=== PATIENT | male | born 1960 | race Caucasian/White ===

== ENCOUNTER 2022-08-16 00:17 | Day surgery (SDC) | payer OTHER, SELFPAY ==
[2022-08-06 09:04] VITALS: BMI 42.8
[2022-08-16 07:57] LABS: Glucose Point of Care 188 mg/dl (65-105)
[2022-08-16 08:01] VITALS: BP 141/76; PULSE 58; RESP 18; TEMP 35.8; O2SAT 99
[2022-08-16] MEDS: LACTATED RINGERS 1,000 ML 150 ML IV CONT (08:10)
--- NOTE | 2022-08-16 08:38 | PM.HPGS ---
History of Present Illness History of Present Illness Consent: Risks, benefits, and alternatives have been discussed and questions answered. Patient agrees to proceed with procedure. Chief complaint: family hx colon ca Narrative: Jareth Armstrong is a 61 year old male Presents for screening colonoscopy. Family history is significant both mother and sister have had colon cancer. Patient reports that his current weight appetite bowel movements are normal. Patient denies abdominal pain. He has had no bleeding. Family history noncontributory. Patient is on anticoagulation because of atrial fibrillation this is held for colonoscopy. Review of Systems Review of Systems: Review of systems noncontributory. [facility] Past Medical History Medical History Essential (primary) hypertension Obesity Sleep apnea in adult Surgical History Surgical History S/P ablation of atrial fibrillation Family History Family History Mother Hypertension Father No family history of hypertension Patient's father is Sibling Carcinoma of colon Patient's sister is Social History Social History Years smoked: 10 Smoking status: Former smoker Smokeless tobacco user: other Second hand tobacco smoke exposure: No Additional smoking assessment comments: NICOTINE POUCHES Alcohol intake: current Substance use: never Substance use type: does not use Lack of Transportation: No Lack of Food: Never True Current Housing: I Have Housing Concerned About Future Housing: No Difficulty Paying Gas/Electric Bills: No Difficulty Paying for Meds: No Currently Unemployed: No Education: Trade/Vocational Certificate Difficulty w/ Childcare or Family Care: No Living arrangements: with family Spiritual care concerns: No Meds Home Medications and Allergies Home Medications Medication Instructions Recorded Confirmed Type lancets 28 gauge (Prodigy Lancets) #25 ea 09/20/19 08/05/22 History pen needle, diabetic 31 gauge x #300 ea 05/22/21 08/05/22 Rx 5/16 (BD Ultra-Fine Short Pen Needle) insulin lispro protamine-lispro See Rx Instructions .Route 10/24/21 08/06/22 Rx 100 unit/mL (75-25) subcutaneous .COMPLEX #72 mL pen (Humalog Mix 75-25 KwikPen) empagliflozin 25 mg tablet 25 mg PO DAILY 90 days #90 tabs 05/01/22 08/06/22 Rx (Jardiance) metformin 500 mg tablet 1,000 mg PO BID 3 months #360 tabs 05/17/22 08/06/22 Rx apixaban 5 mg tablet (Eliquis) 5 mg PO BID #60 tabs 06/18/22 08/06/22 Rx amiodarone 200 mg tablet 200 mg PO BID 08/05/22 08/16/22 History blood-glucose sensor (FreeStyle #6 ea 08/05/22 08/05/22 Rx Yves 3 Sensor device) tirzepatide 2.5 mg/0.5 mL 2.5 mg (0.5 mL) subcut WEEKLY 4 08/05/22 08/06/22 Rx subcutaneous pen injector weeks #2 mL (Mounjaro) tirzepatide 5 mg/0.5 mL 5 mg (0.5 mL) subcut WEEKLY #2 mL 08/05/22 08/06/22 Rx subcutaneous pen injector (Mounjaro) losartan 100 mg tablet 100 mg PO DAILY 08/06/22 08/06/22 History metoprolol succinate 25 mg 25 mg PO HS 08/06/22 08/06/22 History tablet,extended release 24 hr rosuvastatin 5 mg tablet 5 mg PO HS 08/06/22 08/06/22 History Allergies Allergy/AdvReac Type Severity Reaction Status Date / Time No Known Allergies Allergy Verified 08/16/22 07:59 Vital Signs Vital Signs - 24 hr 08/16/22 08:01 Temperature 96.5 F L Pulse Rate 58 L Respiratory Rate 18 Blood Pressure 141/76 H Pulse Oximetry 99 Oxygen Delivery Room Air Exam Narrative: Physical exam reveals patient to be alert. Vital signs stable. HEENT exam is unremarkable. Patient is anicteric. Lungs are clear to auscultation and percussion. Heart is without murmur or extra so
--- NOTE | 2022-08-16 09:08 | WPDANESEPPF ---
Anes - Initial Pre Proc Eval Procedure: Operation Date: 08/16/22 09:00 Proposed Procedures p Screening Colonoscopy - Chidi Lomax MD Date/Time: 08/16/22 09:08 Surgeon: Chidi Lomax MD Pre Op Diagnosis: family hx colon ca Patient Data Age: 61 Gender: M Height: 1.79 m Weight: 137 kg Last Vital Signs Temp 96.5 F L 08/16/22 08:01 Pulse 58 L 08/16/22 08:01 Resp 18 08/16/22 08:01 BP 141/76 H 08/16/22 08:01 Pulse Ox 99 08/16/22 08:01 O2 Del Method Room Air 08/16/22 08:01 Allergies Allergy/AdvReac Type Severity Reaction Status Date / Time No Known Allergies Allergy Verified 08/16/22 07:59 Home Medications Medication Instructions Recorded Confirmed Type lancets 28 gauge (Prodigy Lancets) #25 ea 09/20/19 08/05/22 History pen needle, diabetic 31 gauge x #300 ea 05/22/21 08/05/22 Rx 5/16 (BD Ultra-Fine Short Pen Needle) insulin lispro protamine-lispro See Rx Instructions .Route 10/24/21 08/06/22 Rx 100 unit/mL (75-25) subcutaneous .COMPLEX #72 mL pen (Humalog Mix 75-25 KwikPen) empagliflozin 25 mg tablet 25 mg PO DAILY 90 days #90 tabs 05/01/22 08/06/22 Rx (Jardiance) metformin 500 mg tablet 1,000 mg PO BID 3 months #360 tabs 05/17/22 08/06/22 Rx apixaban 5 mg tablet (Eliquis) 5 mg PO BID #60 tabs 06/18/22 08/06/22 Rx amiodarone 200 mg tablet 200 mg PO BID 08/05/22 08/16/22 History blood-glucose sensor (FreeStyle #6 ea 08/05/22 08/05/22 Rx Yves 3 Sensor device) tirzepatide 2.5 mg/0.5 mL 2.5 mg (0.5 mL) subcut WEEKLY 4 08/05/22 08/06/22 Rx subcutaneous pen injector weeks #2 mL (Anthony) tirzepatide 5 mg/0.5 mL 5 mg (0.5 mL) subcut WEEKLY #2 mL 08/05/22 08/06/22 Rx subcutaneous pen injector (Anthony) losartan 100 mg tablet 100 mg PO DAILY 08/06/22 08/06/22 History metoprolol succinate 25 mg 25 mg PO HS 08/06/22 08/06/22 History tablet,extended release 24 hr rosuvastatin 5 mg tablet 5 mg PO HS 08/06/22 08/06/22 History Laboratory Tests 08/16/22 07:54 POC Capillary Glucose 188 H mg/dl (65-105) Patient hx anesthesia problems: none Family hx anesthesia problems: none Results Review: All pre-operative results and documents have been reviewed as part of the pre-operative evaluation. [facility] Past Medical History Medical History Essential (primary) hypertension Obesity Sleep apnea in adult Surgical History Surgical History S/P ablation of atrial fibrillation Family History Family History Mother Hypertension Father No family history of hypertension Patient's father is Sibling Carcinoma of colon Patient's sister is Social History Social History Years smoked: 10 Smoking status: Former smoker Smokeless tobacco user: other Second hand tobacco smoke exposure: No Additional smoking assessment comments: NICOTINE POUCHES Alcohol intake: current Substance use: never Substance use type: does not use Lack of Transportation: No Lack of Food: Never True Current Housing: I Have Housing Concerned About Future Housing: No Difficulty Paying Gas/Electric Bills: No Difficulty Paying for Meds: No Currently Unemployed: No Education: Trade/Vocational Certificate Difficulty w/ Childcare or Family Care: No Living arrangements: with family Spiritual care concerns: No Anes - Eval Final PreProcedure Day of Procedure 08/16/22 09:08 Patient weight: morbidly obese Heart: regular rate and rhythm Lungs: clear to auscultation Airway: Mallampati scale class III Neurological: alert and oriented Last oral intake: >/= 8 hours ASA classification: III Emergent: no Anesthetic plan: proceed Anesthesia type and monitoring: general GIV
[2022-08-16 09:46] VITALS: BP 114/78; PULSE 64; RESP 18; O2SAT 99
[2022-08-16 09:56] VITALS: BP 135/86; PULSE 60; RESP 23; O2SAT 97
[2022-08-16 10:06] VITALS: BP 125/81; PULSE 60; RESP 19; O2SAT 98
[2022-08-16 10:12] LABS: Glucose Point of Care 142 mg/dl (65-105)
== END 2022-08-16 10:14 | disposition home or self-care (01) ==
PROVIDERS: PCP Internal Medicine; Visit Provider Internal Medicine Gastroenterology
PROC: 0DJD8ZZ Inspection of Lower Intestinal Tract, Via Natural or Artificial Opening Endoscopic (ICD-10-PCS; CPT 45378; principal; 2022-08-16 09:00)
DX: Z12.11 Encounter for screening for malignant neoplasm of colon (principal); D12.5 Benign neoplasm of sigmoid colon; Z80.0 Family history of malignant neoplasm of digestive organs; I48.91 Unspecified atrial fibrillation; I10 Essential (primary) hypertension; G47.30 Sleep apnea, unspecified; E66.01 Morbid (severe) obesity due to excess calories; Z68.41 Body mass index [BMI] 40.0-44.9, adult; Z87.891 Personal history of nicotine dependence; Z79.4 Long term (current) use of insulin; Z79.84 Long term (current) use of oral hypoglycemic drugs; Z79.01 Long term (current) use of anticoagulants
CPT/HCPCS: 45385; 82948; 88305; J2704; J7120